=== PATIENT | female | born 1985 | race Hispanic/Latino ===

== ENCOUNTER 2022-05-31 03:46 | Observation (INO) | payer BC, MEDICAID ==
[~2022-05-31] VITALS: Ht 162.6 cm; Wt 76.3 kg
[2022-05-31] MEDS ORDERED: LACTULOSE 20 GM/30 ML UDCUP PO PRN (07:30)
[2022-05-31] MEDS ORDERED: LOPERAMIDE HCL 2 MG CAP PO PRN (07:30)
[2022-05-31] MEDS ORDERED: HYDROCODONE/ACETAMINOPHEN 5/325 MG TAB PO PRN (07:30)
[2022-05-31] MEDS ORDERED: BENZOCAINE/MENTH/CETYLPYRD CL 1 EACH LOZENGE MM PRN (07:30)
[2022-05-31] MEDS ORDERED: GUAIFENESIN-DM 200/20 MG 10 ML PO PRN (07:30)
[2022-05-31] MEDS ORDERED: MAG/ALUM/SIMETH 30 ML UDCUP PO PRN (07:30)
[2022-05-31] MEDS ORDERED: ALPRAZOLAM 0.5 MG TABLET PO PRN (07:30)
[2022-05-31] MEDS ORDERED: ZOLPIDEM TARTRATE 5 MG TAB PO PRN (07:30)
[2022-05-31] MEDS ORDERED: ONDANSETRON 4MG INJ IV PRN (07:30)
[2022-05-31] MEDS ORDERED: GUAIFENESIN SUGAR-FREE 100 MG/5 ML UDCUP PO PRN (07:30)
[2022-05-31] MEDS ORDERED: ACETAMINOPHEN 325 MG TAB PO PRN (07:30)
[2022-05-31] MEDS ORDERED: ARTIFICAL TEARS SOL 15 ML OP PRN (07:30)
[2022-05-31] MEDS ORDERED: DOCUSATE SODIUM 100 MG CAP PO PRN (07:30)
[2022-05-31] MEDS ORDERED: DIPHENHYDRAMINE HCL 25 MG CAPSULE PO PRN (07:30)
[2022-05-31] MEDS ORDERED: POLYETHYLENE GLYCOL 3350 17 GM POWD.PACK PO PRN (07:30)
[2022-05-31] MEDS ORDERED: NITROGLYCERIN 0.4 MG SL TAB SL PRN (07:30)
[2022-05-31 07:32] VITALS: BP_SYST 116; BP_SYST 144; BP_DIAS 67; BP_DIAS 72
[2022-05-31 08:26] LABS: HEMATOCRIT 37.3 % (36-48); MEAN CORPUSCULAR HEMOGLOBIN 28.9 pg (27.0-33.0); MEAN CORPUSCULAR HGB CONC 32.4 g/dL (32.0-36.0); RED BLOOD CELL COUNT(AUTO) 4.19 MIL/uL (4.00-5.50); RED CELL DISTRIBUTION WIDTH 13.1 % (11.0-15.5); WHITE BLOOD COUNT (AUTO) 8.3 K/uL (4.8-10.8)
[2022-05-31 08:48] LABS: CREATININE 0.7 mg/dL (0.5-1.5); MAGNESIUM 1.8 mg/dL (1.80-2.40); POTASSIUM 3.5 mmol/L (3.5-5.1); THYROID STIMULATING HORMONE 1.56 uIU/mL (0.36-3.74)
[2022-05-31] MEDS ORDERED: ASPIRIN 325MG EC TAB PO SCH (09:00)
[2022-05-31] MEDS ORDERED: PANTOPRAZOLE 40 MG TAB DR PO SCH (09:00)
[2022-05-31 09:04] LABS: HEMOGLOBIN A1C 5.7 % (4.0-6.0)
[2022-05-31] MEDS ORDERED: NAPROXEN 500 MG TABLET PO SCH (11:00)
[2022-05-31 11:52] VITALS: BP 116/68
[2022-05-31 16:11] VITALS: BP 108/65
[2022-05-31] MEDS ORDERED: ATORVASTATIN 40 MG TABLET PO SCH (21:00)
== END 2022-05-31 17:15 | disposition home or self-care (01) ==
LOC: 2DH 06:48 → UNDODISOB 12:12
PROVIDERS: ADMIT Internal Medicine Critical Care Medicine; ATTEND Internal Medicine Critical Care Medicine
DX: M62.81 Muscle weakness (generalized) (principal); R20.0 Anesthesia of skin; Z79.899 Other long term (current) drug therapy; Z98.890 Other specified postprocedural states
CPT/HCPCS: 83036; 84443; 82550; 83735; 84484; 80048; 85027; 36415; 93306; 93356; 72141; 72148; 72146; G0378 ×9; G0379